=== PATIENT | female | born 1950 | race African-American/Black ===

== ENCOUNTER 2017-06-10 16:31 | Emergency (ER) | payer MEDICARE, MEDICAID ==
[2017-06-10] MEDS ORDERED: Ondansetron HCl/PF 4 MG/2 ML Vial ONE (16:45)
[2017-06-10 17:19] LABS: ALT (SGPT) 90 U/L (8-55); AST (SGOT) 249 U/L (5-34); Albumin 3.9 g/dL (3.4-4.8); Alkaline Phosphatase 83 U/L (40-150); Anion Gap 15 mmol/L (10-20); BUN (Urea Nitrogen) 16 mg/dL (9.8-20.1); Bilirubin, Total 0.5 mg/dL (0.2-1.2); CK (CPK) 156 U/L (29-168); Calc. Creatinine Clearance 0 mL/min (70-130); Calcium 9.4 mg/dL (7.8-10.44); Carbon Dioxide 25 mmol/L (23-31); Chloride 103 mmol/L (98-107); Estimated GFR-MDRD 70; Globulin 3.2 g/dL (2.4-3.5); Glucose 116 mg/dL (80-115); Lipase 14 U/L (8-78); Potassium 3.4 mmol/L (3.5-5.1); Protein, Total 7.1 g/dL (6.0-8.3); Sodium 140 mmol/L (136-145); Troponin I Less than 0.010 ng/mL (< 0.028)
[2017-06-10 17:26] LABS: Band 4 % (5-11); Eosinophils 1 % (0-10); Hemoglobin 14.2 g/dL (12.0-16.0); Lymphocytes 20 % (21-51); MDiff Complete? YES; Mean Corpuscular HGB CONC 34.4 g/dL (32.0-36.0); Mean Corpuscular Hemoglobin 30.7 pg (27.0-31.0); Mean Corpuscular Volume 89.1 fl (81.0-99.0); Mean Platelet Volume 7.8 fL (7.4-10.4); Monocytes 4 % (0-10); Neutrophil 64 % (42-75); PLT Morphology Comment Appears Adequate; Platelet Count 276 thou/uL (130-400); RBC Distribution Width 12.2 % (11.5-14.5); RBC Morphology Normal; Reactive Lymphocytes 7 % (0-10); Red Blood Cell (RBC) Count 4.64 mill/uL (4.20-5.40); White Blood Cell (WBC) Count 12.1 thou/uL (4.8-10.8)
[2017-06-10 18:11] LABS: Bilirubin Negative (Negative); Blood, Urine Trace (Negative); Glucose, Urine (Dipstick) Negative (Negative); Leukocyte Small (Negative); Nitrite Negative (Negative); Protein, Urine (Dipstick) Negative (Neg-Trace); Specific Gravity, Urine 1.015 (1.005-1.030); Urobilinogen 0.2 mg/dL (0.2-1.0); pH, Urine 8.5 (5.0-9.0)
[2017-06-10 18:13] LABS: Clarity Hazy (Clear)
[2017-06-10 18:22] LABS: Bacteria/HPF 1+ HPF (None Seen); RBC/HPF 0-3 HPF (0-3); Trichomonas/HPF Rare HPF (None Seen)
--- NOTE | 2017-06-10 18:38 | CT ---
ABDOMEN CT WITH CONTRAST PELVIC CT WITH CONTRAST 06/10/17 COMPARISON: 09/26/13. HISTORY: Abdominal pain. Throbbing cramps. TECHNIQUE: An abdomen and pelvic CT are performed with IV contrast. Enteric contrast was not administered. Coron al reformatted images are submitted for interpretation. FINDINGS: ABDOMEN CT: Linear changes in the lung bases are felt to be due to scar or atelectasis. Heart size is normal. No pericardial effusion. Descending thoracic aorta and abdominal aorta have an overall normal caliber. N o periaortic fat stranding. Symmetric attenuation of the psoas muscles. Intra and extrahepatic portal vein is patent. There is nonspecific mild periportal edema. Nonspecific contracted gallbladder. Multiple hypodensities throughout the liver, compatible with hepatic cysts. Spleen, pancreas, and rig ht adrenal gland are unremarkable. There appears to be a focal nodule associated with the left adrena l gland, best appreciated on coronal image 73 measuring 1.5 cm. This focal prominence was present on the previous examination and has an attenuation coefficient of 4 Hounsfield units suggesting possible small adenoma. No gastrohepatic, retrocrural or periportal lymphadenopathy. No mesenteric mass, lymphadenopathy, free air or free fluid. Symmetric enhancement of the kidneys. Bi laterally, no obstructive uropathy. Limited evaluation of the alimentary canal due to lack of oral contrast. Gastric mucosa, duodenum, and multiple unremarkable small bowel loops are noted. Ileocecal junction i s normal. Normal caliber appendix, retrocecal in location. No evidence of bowel obstruction. Scattere d fecal material in a nonobstructed, nondilated colon. PELVIC CT: No mass, lymphadenopathy, free air of free fluid. Urinary bladder is unremarkable. The uterus is surg ically absent. There are no lytic or blastic lesions in the osseous structures. Degenerative changes in the lumbar s pine are redemonstrated with vacuum disc phenomenon, end plate sclerosis and irregularity. IMPRESSION: No acute abnormality in abdomen or pelvis. POS: ANTHONY
[2017-06-10] MEDS ORDERED: Ketorolac Tromethamine 30 MG/ML VIAL ONE (19:04)
--- NOTE | 2017-06-10 20:01 | ULT ---
GALLBLADDER ULTRASOUND: 06/10/17 HISTORY: Abdominal pain. COMPARISON: None. CORRELATION: Abdomen and pelvic CT 06/10/17. TECHNIQUE: Utilizing multihertz transducer, sonographic imaging of the right upper quadrant is performed in the longitudinal and transverse plane. FINDINGS: The head and proximal pancreatic body have a normal echotexture. Hepatic parenchymal has an overall n ormal echotexture. Multiple hepatic cysts are noted. Large hepatic cyst measures 2.8 x 1.9 x 1.5 cm. Right hepatic lobe measures 12.5 cm. Right kidney does not demonstrate any hydronephrosis. Main yoel l vein is patent. Appropriate directional flow. Common bile duct diameter is 0.4 cm. Contracted gallbladder, likely due to nonfasting state. No sonographic evidence of cholelithiasis, gallbladder wall thickening or pericholecystic fluid. Nega tive Bates's sign. IMPRESSION: Contracted gallbladder due to nonfasting state. No sonographic evidence of cholelithiasis or cholecys titis. POS: ANTHONY
== END 2017-06-10 20:15 | disposition home or self-care (01) ==
LOC: SCSER 16:31
DX: R10.13 Epigastric pain (principal); I10 Essential (primary) hypertension; F17.210 Nicotine dependence, cigarettes, uncomplicated; E78.5 Hyperlipidemia, unspecified; G89.29 Other chronic pain
CPT/HCPCS: 74177; 76705; 80053; 81003; 81015; 82553; 83690; 84484; 85025; 93005; 96361; 96374; 96375; J1885; J2405

== ENCOUNTER 2019-01-02 19:13 | Emergency (ER) | payer MEDICARE, MEDICAID ==
[2019-01-02] MEDS ORDERED: Metoclopramide HCl 10 MG/2 ML VIAL ONE (19:50)
[2019-01-02] MEDS ORDERED: diphenhydrAMINE 50 MG/ML VIAL ONE (19:50)
[2019-01-02] MEDS ORDERED: Ketorolac Tromethamine 30 MG/ML VIAL ONE (20:21)
[2019-01-02] MEDS ORDERED: Ondansetron PF 4 MG/2 ML Vial ONE (20:26)
== END 2019-01-02 20:54 | disposition home or self-care (01) ==
LOC: SCSER 19:13
DX: R51 Headache (principal); E78.5 Hyperlipidemia, unspecified; I10 Essential (primary) hypertension; F17.210 Nicotine dependence, cigarettes, uncomplicated
CPT/HCPCS: 96365; 96375; J1200; J1885; J2405; J2765